=== PATIENT | female | born 1960 | race Caucasian/White ===

== ENCOUNTER 2023-06-09 15:00 | Emergency (ER) | payer SELFPAY ==
[2023-06-09] MEDS ORDERED: Acetaminophen 325 MG Tab PO ONE (15:33)
[2023-06-09] MEDS ORDERED: LORazepam 1 MG Tab PO ONE (15:34)
== END 2023-06-09 16:41 | disposition home or self-care (01) ==
LOC: JD.ED 15:00
DX: S00.33XA Contusion of nose, initial encounter (principal); Z88.8 Allergy status to other drugs, medicaments and biological substances; W01.0XXA Fall on same level from slipping, tripping and stumbling without subsequent striking against object, initial encounter
CPT/HCPCS: 70450; 70486; 73110; 99284; A9270; 99283